=== PATIENT | male | born 1990 | race Caucasian/White ===

== ENCOUNTER 2016-10-18 15:12 | Emergency (ER) | payer BC ==
[2016-10-18] MEDS ORDERED: Lidocaine 2% VISCOUS* 15 ML UDC SWISH SPIT ONE (15:50)
--- NOTE | 2016-10-18 15:57 | UC ---
General HPI - HPI Summary HPI Summary: patient states he has a history of herpes and anxiety. he has had many sores in his mouth that has developed over the past few days, unable to eat hard to talk due to pain. no fever, he is to see mental health counselor on . - History of Current Complaint Chief Complaint: UCGeneralIllness Stated Complaint: SORE IN MOUTH Time Seen by Provider: 10/18/16 15:43 Hx Obtained From: Patient Onset/Duration: Sudden Onset, Lasting Days Onset Severity: Mild Current Severity: Severe Pain Intensity: 9 Pain Location at: mouth - Allergy/Home Medications Allergies/Adverse Reactions: Allergies Allergy/AdvReac Type Severity Reaction Status Date / Time Amoxicillin Allergy Severe Anaphylatic Verified 10/18/16 15:41 Shock Penicillins Allergy Intermediate Anaphylatic Verified 10/18/16 15:41 Shock PMH/Surg Hx/FS Hx/Imm Hx Previously Healthy: Yes Endocrine History Of: Denies: Diabetes, Thyroid Disease Cardiovascular History Of: Denies: Cardiac Disorders, Hypertension Respiratory History Of: Denies: COPD, Asthma GI/ History Of: Denies: Ulcer - Surgical History Surgical History: None - Family History Known Family History: Negative: Cardiac Disease, Hypertension - Social History Alcohol Use: None Substance Use Type: None Smoking Status (MU): Former Smoker Type: Cigarettes Amount Used/How Often: a few cig a day Household Exposure Type: Cigarettes Review of Systems Constitutional: Negative Skin: Negative Eyes: Negative ENT: Other - oral sores Respiratory: Negative Cardiovascular: Negative Gastrointestinal: Negative Genitourinary: Negative Motor: Negative Neurovascular: Negative Musculoskeletal: Negative Neurological: Negative Psychological: Anxious All Other Systems Reviewed And Are Negative: Yes Physical Exam Triage Information Reviewed: Yes Appearance: Well-Nourished, Ill-Appearing, Pain Distress Vital Signs: Initial Vital Signs Temp 98.5 F 10/18/16 15:38 Pulse 65 10/18/16 15:38 Resp 16 10/18/16 15:38 BP 130/59 10/18/16 15:38 Pulse Ox 99 10/18/16 15:38 Vital Signs Reviewed: Yes Eye Exam: Normal Eyes: Positive: Conjunctiva Clear ENT: Positive: Hearing grossly normal, Pharyngeal erythema, TMs normal Dental: Positive: Other: - multiple ulcerations throughout mouth and tongue, painful for patient to open mouth Neck: Positive: Supple, Nontender, No Lymphadenopathy Respiratory Exam: Normal Respiratory: Positive: Chest non-tender, Lungs clear, Normal breath sounds Cardiovascular Exam: Normal Cardiovascular: Positive: RRR, No Murmur, Pulses Normal Abdominal Exam: Normal Abdomen Description: Positive: Nontender, No Organomegaly, Soft Bowel Sounds: Positive: Present Musculoskeletal Exam: Normal Musculoskeletal: Positive: Strength Intact, ROM Intact, No Edema Neurological Exam: Normal Neurological: Positive: Alert, Muscle Tone Normal Psychological Exam: Normal Skin Exam: Normal Course/Dx - Course Course Of Treatment: history obtained, exam performed, visous lidocaine given for pain relief, patient did not tolerated, attempted to applie ice to the area without relief, ibprofen given as well. educated on oral hygiene and use of valtrex. valtrex given for possible herpes exacerbation, based on history. Patient is refusing all medicatons at this time. his anxiety is definitly high. Denies any thoughts of harming himself. turned down ativan and atarax becasue they make him sleepy. recommend giving the valtrex 24 hours to work, to use the ibuprofen. - Differential Dx - Multi-Symptom Provider Diagnoses: herpes outbreak. anxiety. ampthus ulcers Discharge - Discharge Plan Condition: Stable Disposition: HOME Prescriptions: ValACYclovir (*) [Valtrex 1 GM(*)] 1 gm PO TID #21 tab hydrOXYzine HCL TAB* [Atarax TAB*] 25 mg PO TID PRN #30 tab PRN Reason: Anxiety Patient Education Materials: Canker Sores (ED), Oral Herpes Simplex Virus Infections (ED) Additional Instructions: Take the valtrex as prescribed. I would continue with the ibuprofen. You refused the atarax, and other medication suggestion. If you do not get relief of symptoms follow up.
[2016-10-18] MEDS ORDERED: Al Hydrox/Mg Hydrox/Simet LIQ* 30 ML UDC PO ONE (16:20)
[2016-10-18] MEDS ORDERED: Ibuprofen TAB* 600 MG PO ONE (16:21)
[2016-10-18 16:43] VITALS: BP 130/59
== END 2016-10-18 16:48 | disposition home or self-care (01) ==
LOC: UCEAST 15:12
DX: B00.1 Herpesviral vesicular dermatitis (principal); K12.0 Recurrent oral aphthae; F41.9 Anxiety disorder, unspecified; Z88.0 Allergy status to penicillin; Z87.891 Personal history of nicotine dependence
CPT/HCPCS: 99212; A9270-GY; G0463

== ENCOUNTER 2016-12-09 15:00 | Emergency (ER) | payer BC, MEDICAID ==
[2016-12-09] MEDS ORDERED: NS 0.9% 1000 ML* 1,000 ML IV ONE ×2 (15:08→18:22)
[2016-12-09 15:22] LABS: Hematocrit 40 % (42-52); Hemoglobin 13.2 g/dl (14.0-18.0); Mean Corpuscular HGB Conc 33 g/dl (31-36); Mean Corpuscular Hemoglobin 30 pg (27-31); Mean Corpuscular Volume 89 fL (80-94); Mean Platelet Volume 8 um3 (7.4-10.4); Red Blood Count 4.45 10^6/ul (4.0-5.4); Red Cell Distribution Width 13 % (10.5-15); White Blood Count 9.1 10^3/ul (3.5-10.8)
--- NOTE | 2016-12-09 15:34 | RAD ---
Indication: Overdose. Single frontal view of the chest performed at 1517 hours was reviewed. Comparison is made with previous exam dated February 10, 2014. No mediastinal shift is noted. Heart is of normal size and configuration. Lung sy appear clear. IMPRESSION: NO ACTIVE CARDIOPULMONARY DISEASE IS NOTED.
[2016-12-09 15:38] LABS: ALT 28 U/L (7-52); AST 26 U/L (13-39); Alkaline Phosphatase 62 U/L (34-104); Anion Gap 7 mmol/L (2-11); BUN/Creatinine Ratio 13.2 (8-20); Blood Urea Nitrogen 15 mg/dL (6-24); CO2 Carbon Dioxide 26 mmol/L (22-32); Calcium 9.3 mg/dL (8.6-10.3); Chloride 102 mmol/L (101-111); Creatine Kinase 181 U/L (10-223); EGFR African American 99.9 (>60); EGFR Non-African American 77.6 (>60); Glucose 189 mg/dL (70-100); Potassium 3.1 mmol/L (3.5-5.0); Sodium 135 mmol/L (133-145)
[2016-12-09 15:58] LABS: Acetaminophen < 15 mcg/mL; Alcohol < 10 mg/dL (<10); Salicylate < 2.50 mg/dL (<30)
[2016-12-09 16:08] LABS: TSH (Thyroid Stimulating Horm) 3.19 mcIU/mL (0.34-5.60)
[2016-12-09] MEDS ORDERED: Potassium Chlor TAB* 20 MEQ TAB.ER PO ONE (16:26)
[2016-12-09] MEDS ORDERED: Naloxone* 0.4 MG/ML 1 ML VIAL IV PUSH ONE ×2 (16:33→17:49)
[2016-12-09] MEDS ORDERED: Ondansetron INJ* 2 MG/ML VIAL ONE (16:36)
[2016-12-09] MEDS ORDERED: Sulfamethox/Trimethoprim DS 800/160* TAB PO ONE (17:50)
[2016-12-09 20:23] VITALS: BP 112/60
--- NOTE | 2016-12-09 21:03 | ED ---
Laura Marks Matthew, scribed for Shelton Leon on 12/09/16 at 2014 . Progress - Progress Note Progress Note: The patient is A&Ox3. Urinalysis was reviewed. The patient's father is present with him and will take him home. I discussed with the father that he needed to watch the patient for the next 24 hours and check-up on him every 2 hours. The father and patient agreed with the plan. He is in stable condition and will be discharged home. Course/Dx - Diagnoses Provider Diagnoses: Drug overdose, Abscess The documentation as recorded by the Laura crook Matthew accurately reflects the service I personally performed and the decisions made by Edward garza Emmanuel.
--- NOTE | 2016-12-11 12:55 | PN ---
Progress Note - Progress Note Note: Patient preliminary wound culture grew Staph aureus which is MRSA positive. Patient placed on bactrim which is appropriate at this time.
--- NOTE | 2016-12-11 18:47 | ED ---
Vicente Marks Billy, scribed for Jose Vivas MD on 12/09/16 at 1518 . Substance Abuse/Use - HPI Summary HPI Summary: Patient is a 26 year-old male BIBA to [facility] after he was found unresponsive due to heroin OD. Police administered 2mg narcan IN and CPR for 1 minute on-scene. EMS administered 2mg narcan IN, 0.4mg narcan IM, and 0.4mg narcan IV with improvement. Patient is alert upon arrival to the ED. He admits to inhaling the heroin. His friend states that the patient also used methamphetamine and Xanax today. Patient admits to prior drug abuse as well. - History Of Current Complaint Chief Complaint: EDOverdose Stated Complaint: OVERDOSE Time Seen by Provider: 12/09/16 15:01 Hx Obtained From: Patient Onset/Duration of Drug/ETOH Abuse: Minutes Ingestion History: Type/Name Of Drug - heroin, methamphetamine, xanax Overdose Characteristics: Inhalation Timing Of Abuse: Binge Use Severity Initially: Severe Severity Currently: Moderate Character: Stuporous Aggravating Factor(s): Nothing Alleviating Factor(s): Medication - Allergies/Home Medications Allergies/Adverse Reactions: Allergies Allergy/AdvReac Type Severity Reaction Status Date / Time Amoxicillin Allergy Severe Anaphylatic Verified 10/18/16 15:41 Shock Penicillins Allergy Intermediate Anaphylatic Verified 10/18/16 15:41 Shock PMH/Surg Hx/FS Hx/Imm Hx Endocrine/Hematology History: Denies: Hx Diabetes, Hx Thyroid Disease Cardiovascular History: Denies: Hx Hypertension Respiratory History: Denies: Hx Asthma, Hx Chronic Obstructive Pulmonary Disease (COPD) GI History: Denies: Hx Ulcer Psychiatric History: Reports: Hx Substance Abuse - Immunization History Date of Tetanus Vaccine: within last 6 months per patient. Infectious Disease History: No Infectious Disease History: Reports: Hx Hepatitis - Hep C Denies: Hx Human Immunodeficiency Virus (HIV), Traveled Outside the [place] in Last 30 Days - Family History Known Family History: Negative: Cardiac Disease, Hypertension - Social History Alcohol Use: None Substance Use Type: Reports: None Smoking Status (MU): Heavy Every Day Tobacco Smoker Type: Cigarettes Amount Used/How Often: a few cig a day Review of Systems Negative: Fever Neurological: Other - heroin OD All Other Systems Reviewed And Are Negative: Yes Physical Exam - Summary Physical Exam Summary: The patient is well-nourished in no acute distress and in no acute pain. The skin is warm and dry and skin color reflects adequate perfusion. There is an abscess and cellulitis of the left inguinal area which appears to be secondary to an ingrown hair. HEENT: The head is normocephalic and atraumatic. The pupils are equal and reactive. The conjunctivae are clear and without drainage. Nares are patent and without drainage. Mouth reveals moist mucous membranes and the throat is without erythema and exudate. The external ears are intact. The ear canals are patent and without drainage. The tympanic membranes are intact. Neck is supple with full range of motion and non-tender. There are no carotid bruits. There is no neck vein distension. Respiratory: Chest is non-tender. Lungs are clear to auscultation and breath sounds are symmetrical and equal. Cardiovascular: Hear is regular rate and rhythm. There is no murmur or rub auscultated. There is no peripheral edema and pulses are symmetrical and equal. Abdomen: The abdomen is soft and non-tender. There are normal bowel sounds heard in all four quadrants and there is no organomegaly palpated. Musculoskeletal: There is no back pain noted. Extremities are non-tender with full range of motion. There is good capillary refill. There is no peripheral edema or calf tenderness elicited. Neurological: Patient is alert and oriented to person, place and time. The patient has symmetrical motor strength in all four extremities. Cranial nerves are grossly intact. Deep tendon reflexes are symmetrical and equal in all four extremities. Psychiatric: The patient has an appropriate affect and does not exhibit any anxiety or depression. Triage Information Reviewed: Yes Vital Signs On Initial Exam: Initial Vitals Pulse Resp Pulse Ox 96 18 100 12/09/16 15:07 12/09/16 15:07 12/09/16 15:07 Vital Signs Reviewed: Yes Procedures - Procedure Summary Procedure Summary: Procedure - Incision and Drainage Patient positioned appropriately, 5cc lidocaine with/without epinephrine was used as a local anesthetic. #11 blade scalpel used for single incision. Additional local anesthetic injected into surrounding viable tissue prior to blunt dissection of loculated adhesions. Copious drainage of pus was expressed ( culture obtained). Patient refused Wound packed with iodoform gauze. Procedure tolerated without complications. Wound dressed with sterile 4x4 gauze and paper tape. Diagnostics - Vital Signs Vital Signs Temp Pulse Resp BP Pulse Ox 12/09/16 15:09 97.3 F 97 16 142/95 100 12/09/16 15:07 96 18 100 - Laboratory Lab Results: Lab Results 12/09/16 12/09/16 12/09/16 Range/Units 15:15 15:15 15:15 WBC 9.1 (3.5-10.8) 10^3/ul RBC 4.45 (4.0-5.4) 10^6/ul Hgb 13.2 L (14.0-18.0) g/dl Hct 40 L (42-52) % MCV 89 (80-94) fL MCH 30 (27-31) pg MCHC 33 (31-36) g/dl RDW 13 (10.5-15) % Plt Count 211 (150-450) 10^3/ul MPV 8 (7.4-10.4) um3 Neut % (Auto) 62.9 (38-83) % Lymph % (Auto) 27.1 (25-47) % [place] % (Auto) 7.0 (1-9) % Eos % (Auto) 1.9 (0-6) % Baso % (Auto) 1.1 (0-2) % Absolute Neuts (auto) 5.7 (1.5-7.7) 10^3/ul Absolute Lymphs (auto) 2.5 (1.0-4.8) 10^3/ul Absolute Monos (auto) 0.6 (0-0.8) 10^3/ul Absolute Eos (auto) 0.2 (0-0.6) 10^3/ul Absolute Basos (auto) 0.1 (0-0.2) 10^3/ul Absolute Nucleated RBC 0.01 10^3/ul Nucleated RBC % 0.1 Sodium 135 (133-145) mmol/L Potassium 3.1 L (3.5-5.0) mmol/L Chloride 102 (101-111) mmol/L Carbon Dioxide 26 (22-32) mmol/L Anion Gap 7 (2-11) mmol/L BUN 15 (6-24) mg/dL Creatinine 1.14 (0.67-1.17) mg/dL Est GFR ( Amer) 99.9 (>60) Est GFR (Non-Af Amer) 77.6 (>60) BUN/Creatinine Ratio 13.2 (8-20) Glucose 189 H (70-100) mg/dL Lactic Acid 2.6 H* (0.5-2.0) mmol/L Calcium 9.3 (8.6-10.3) mg/dL Total Bilirubin 0.50 (0.2-1.0) mg/dL AST 26 (13-39) U/L ALT 28 (7-52) U/L Alkaline Phosphatase 62 (34-104) U/L Total Creatine Kinase 181 (10-223) U/L Total Protein 7.0 (6.4-8.9) g/dL Albumin 4.0 (3.2-5.2) g/dL Globulin 3.0 (2-4) g/dL Albumin/Globulin Ratio 1.3 (1-3) TSH 3.19 (0.34-5.60) mcIU/mL Salicylates < 2.50 (<30) mg/dL Acetaminophen < 15 mcg/mL Serum Alcohol < 10 (<10) mg/dL Result Diagrams: 12/09/16 15:15 12/09/16 15:15 Lab Statement: Any lab studies that have been ordered have been reviewed, and results considered in the medical decision making process. - Radiology CXR Xray Interpretation: No Acute Changes Radiology Interpretation Completed By: Radiologist - EKG 1826 EKG Interpretation: sinus tachycardia 104 bpm, no ST elevation EKG Comparison: No Significant Change - Compared to 02/10/14 Course/Dx - Course Assessment/Plan: Patient is a 26 year-old male BIBA to [facility] after he was found unresponsive due to heroin OD. Police administered 2mg narcan IN and CPR for 1 minute on-scene. EMS administered 2mg narcan IN, 0.4mg narcan IM, and 0.4mg narcan IV with improvement. Patient is alert upon arrival to the ED. He admits to inhaling the heroin. His friend states that the patient also used methamphetamine and Xanax today. Patient admits to prior drug abuse as well. Bloodwork shows mild anemia, hypokalemia of 3.1 for which he was given potassium chloride, glucose 189 and lactic acid 2.6. CXR shows no acute pathology. EKG shows sinus tachycardia without ST elevation. In addition to the narcan given to him by law enforcement and EMS, we have given the patient 2x doses of narcan here in the ED and he is A&Ox3. He was hydrated with IVF but he was unable to provide urine sample yet. He was also noted to have an abscess and cellulitis in the left inguinal area from an ingrown hair. I performed I&D for the abscess. See procedure note for further details. The patient was given Keflex for the infection. We are still waiting on urine toxicology and UA. The patient is hemodynamically stable, A&Ox3. After UA results, the patient can be discharged home to follow up with PCP. The patient will be signed out to Dr. Leon pending UA. - Diagnoses Provider Diagnoses: Drug overdose, Abscess Discharge - Discharge Plan Condition: Stable Disposition: HOME Discharge Disposition Comment: Signed out to Dr. Leon pending UA. Prescriptions: Ibuprofen TAB* [Motrin TAB* 600 MG] 600 mg PO Q8H PRN #20 tab PRN Reason: Pain Sulfamethox/Trimethoprim DS* [Bactrim DS 800/160 TAB*] 1 tab PO BID #20 tab Patient Education Materials: Sulfamethoxazole/Trimethoprim (By mouth), Ibuprofen (By mouth), Abscess (ED), Adult Overdose (ED) Referrals: [facility] REFERRAL [Outside] Additional Instructions: Please follow-up with your primary care physician in 3 days. The documentation as recorded by the Vicente crook Billy accurately reflects the service I personally performed and the decisions made by me, Jose Vivas MD.
--- NOTE | 2016-12-12 08:30 | PN ---
Progress Note - Progress Note Note: Cultures are sensitive to Bactrim. No further action needed.
== END 2016-12-09 20:53 | disposition home or self-care (01) ==
LOC: ED 15:00
DX: T40.1X4A Poisoning by heroin, undetermined, initial encounter (principal); Y92.9 Unspecified place or not applicable
CPT/HCPCS: 36415; 71010; 80053; 80320; 80329; 82550; 83605; 84443; 85025; 87070; 87077; 87186; 87205; 87640; 87641; 93005; 96374; 96375; 96376; 99284; A9270-GY; G0480; J2310; J2405

== ENCOUNTER 2016-12-15 21:56 | Emergency (ER) | payer MEDICAID ==
[2016-12-15 22:36] LABS: Hematocrit 45 % (42-52); Hemoglobin 15.1 g/dl (14.0-18.0); Mean Corpuscular HGB Conc 34 g/dl (31-36); Mean Corpuscular Hemoglobin 30 pg (27-31); Mean Corpuscular Volume 89 fL (80-94); Mean Platelet Volume 8 um3 (7.4-10.4); Red Blood Count 5.03 10^6/ul (4.0-5.4); Red Cell Distribution Width 14 % (10.5-15)
[2016-12-15 22:52] LABS: Troponin I 0.01 ng/mL (<0.04)
[2016-12-15 22:54] LABS: Albumin 4.4 g/dL (3.2-5.2); Calcium 9.9 mg/dL (8.6-10.3); EGFR African American 81.5 (>60); EGFR Non-African American 63.3 (>60); Globulin 3.5 g/dL (2-4); Total Bilirubin 0.5 mg/dL (0.2-1.0); Total Protein 7.9 g/dL (6.4-8.9)
[2016-12-16 06:05] VITALS: BP 102/66
--- NOTE | 2016-12-16 06:21 | ED ---
Selina, DoctorEva, scribed for Glenis Park MD on 12/16/16 at 0100 . Substance Abuse/Use - HPI Summary HPI Summary: 26 year old male brought to [facility] by EMS after heroin overdose. Patient non- responsive, was unable to provide any information regarding OD episode. HPI limited due to level 5 caveat. - History Of Current Complaint Chief Complaint: EDOverdose Stated Complaint: OVERDOSE Time Seen by Provider: 12/15/16 22:08 Hx Obtained From: EMS Hx From Patient Unobtainable Due To: Other - Level 5 Caveat Onset/Duration of Drug/ETOH Abuse: Hours Ingestion History: Type/Name Of Drug - Heroin - Allergies/Home Medications Allergies/Adverse Reactions: Allergies Allergy/AdvReac Type Severity Reaction Status Date / Time Amoxicillin Allergy Severe Anaphylatic Verified 10/18/16 15:41 Shock Penicillins Allergy Intermediate Anaphylatic Verified 10/18/16 15:41 Shock PMH/Surg Hx/FS Hx/Imm Hx Endocrine/Hematology History: Denies: Hx Diabetes, Hx Thyroid Disease Cardiovascular History: Denies: Hx Hypertension Respiratory History: Denies: Hx Asthma, Hx Chronic Obstructive Pulmonary Disease (COPD) GI History: Denies: Hx Ulcer Psychiatric History: Reports: Hx Substance Abuse - Immunization History Date of Tetanus Vaccine: within last 6 months per patient. Infectious Disease History: Unable to Obtain/Confirm Infectious Disease History: Reports: Hx Hepatitis - Hep C Denies: Hx Human Immunodeficiency Virus (HIV), Traveled Outside the US in Last 30 Days - Family History Known Family History: Negative: Cardiac Disease, Hypertension - Social History Alcohol Use: None Substance Use Type: Reports: Heroin Substance Use Comment - Amount & Last Used: unknown Smoking Status (MU): Heavy Every Day Tobacco Smoker Type: Cigarettes Amount Used/How Often: a few cig a day Review of Systems - ROS Summary Review of Systems Summary: ROS limited due to Level 5 Caveat Negative: Fever All Other Systems Reviewed And Are Negative: No Physical Exam - Summary Physical Exam Summary: PE limited due to Level 5 Caveat Triage Information Reviewed: Yes Vital Signs On Initial Exam: Initial Vitals Temp Pulse Resp BP Pulse Ox 96.4 F 62 14 119/69 97 12/15/16 22:04 12/15/16 22:04 12/15/16 22:04 12/15/16 22:04 12/15/16 22:04 Vital Signs Reviewed: Yes - [place] Coma Scale Coma Scale Total: 9 Diagnostics - Vital Signs Vital Signs Temp Pulse Resp BP Pulse Ox 12/15/16 22:10 96.4 F 62 14 119/69 97 12/15/16 22:04 96.4 F 62 14 119/69 97 - Laboratory Lab Results: Lab Results 12/15/16 12/15/16 Range/Units 22:25 22:25 WBC 8.0 (3.5-10.8) 10^3/ul RBC 5.03 (4.0-5.4) 10^6/ul Hgb 15.1 (14.0-18.0) g/dl Hct 45 (42-52) % MCV 89 (80-94) fL MCH 30 (27-31) pg MCHC 34 (31-36) g/dl RDW 14 (10.5-15) % Plt Count 253 (150-450) 10^3/ul MPV 8 (7.4-10.4) um3 Neut % (Auto) 63.6 (38-83) % Lymph % (Auto) 27.7 (25-47) % [place] % (Auto) 7.5 (1-9) % Eos % (Auto) 0.5 (0-6) % Baso % (Auto) 0.7 (0-2) % Absolute Neuts (auto) 5.1 (1.5-7.7) 10^3/ul Absolute Lymphs (auto) 2.2 (1.0-4.8) 10^3/ul Absolute Monos (auto) 0.6 (0-0.8) 10^3/ul Absolute Eos (auto) 0 (0-0.6) 10^3/ul Absolute Basos (auto) 0.1 (0-0.2) 10^3/ul Absolute Nucleated RBC 0.01 10^3/ul Nucleated RBC % 0.2 Sodium 136 (133-145) mmol/L Potassium 4.0 (3.5-5.0) mmol/L Chloride 101 (101-111) mmol/L Carbon Dioxide 28 (22-32) mmol/L Anion Gap 7 (2-11) mmol/L BUN 19 (6-24) mg/dL Creatinine 1.36 H (0.67-1.17) mg/dL Est GFR ( Amer) 81.5 (>60) Est GFR (Non-Af Amer) 63.3 (>60) BUN/Creatinine Ratio 14.0 (8-20) Glucose 128 H (70-100) mg/dL Calcium 9.9 (8.6-10.3) mg/dL Total Bilirubin 0.50 (0.2-1.0) mg/dL AST 27 (13-39) U/L ALT 28 (7-52) U/L Alkaline Phosphatase 68 (34-104) U/L Troponin I 0.01 (<0.04) ng/mL Total Protein 7.9 (6.4-8.9) g/dL Albumin 4.4 (3.2-5.2) g/dL Globulin 3.5 (2-4) g/dL Albumin/Globulin Ratio 1.3 (1-3) Result Diagrams: 12/15/16 22:25 12/15/16 22:25 Lab Statement: Any lab studies that have been ordered have been reviewed, and results considered in the medical decision making process. - EKG 22:16 Cardiac Rate: NL - 86 BPM EKG Rhythm: Sinus Rhythm - normal EKG Interpretation: T slightly peaked from normal EKG Comparison: No Significant Change - from 12/09/2016 Course/Dx - Course Course Of Treatment: 26 yo male with heroine od in the field requiring 6mg intranasal narcane in total observed here in the ED for multiple hours now awake and ok to go to long-term - Diagnoses Provider Diagnoses: Heroin overdose - Physician Notifications Discussed Care Of Patient With: 23:00 - discussed care of pt with Dr. Grullon ( hospitalist). Agrees to admit him. Discharge - Discharge Plan Condition: Stable Disposition: HOME Patient Education Materials: Narcotic Abuse (ED) Referrals: No Primary Care Phys,NOPCP [Primary Care Provider] - The documentation as recorded by the Doctor crook Tahera accurately reflects the service I personally performed and the decisions made by me, Glenis Park MD.
== END 2016-12-16 06:26 | disposition home or self-care (01) ==
LOC: ED 21:56
DX: T40.1X1A Poisoning by heroin, accidental (unintentional), initial encounter (principal); Y92.9 Unspecified place or not applicable
CPT/HCPCS: 36415; 80053; 84484; 85025; 93005; 99284

== ENCOUNTER 2017-05-04 19:43 | Emergency (ER) | payer MEDICAID ==
[2017-05-04 19:53] VITALS: BP 126/68
[2017-05-04] MEDS ORDERED: DOXYcycline CAP(*) 100 MG PO ONE (20:42)
[2017-05-04] MEDS ORDERED: Acetaminophen TAB* 325 MG PO ONE (20:42)
--- NOTE | 2017-05-04 20:54 | UC ---
Skin Complaint HPI - HPI Summary HPI Summary: Pt noticed multiple pimples/pustules on face starting yesterday, does not usually have acne on face to this degree. Tried popping 3 of the spots yesterday , and today they are much bigger and more painful. Two have a white head on them and the third is hard and painful. Denies fever or known exposure to infection; [place] [place] to [place]. - History of Current Complaint Hx Obtained From: Patient Onset/Duration: Gradual Onset, Lasting Days Timing: Constant Onset Severity: Mild Current Severity: Moderate Location: Discrete Character: Redness, Raised, Painful Aggravating: Touch Alleviating: Nothing Associated Signs & Symptoms: Positive: Tenderness <Kelly Lopez - Last Filed: 05/04/17 20:47> <Meghan David - Last Filed: 05/04/17 22:14> - History of Current Complaint Chief Complaint: UCSkin Time Seen by Provider: 05/04/17 20:37 Stated Complaint: SORES ON FACE - Allergy/Home Medications Allergies/Adverse Reactions: Allergies Allergy/AdvReac Type Severity Reaction Status Date / Time Amoxicillin Allergy Severe Anaphylatic Verified 05/04/17 19:53 Shock Penicillins Allergy Intermediate Anaphylatic Verified 05/04/17 19:53 Shock Review of Systems Constitutional: Negative Skin: Other - swollen painful spots on face Eyes: Negative ENT: Negative Respiratory: Negative Cardiovascular: Negative Gastrointestinal: Negative Genitourinary: Negative Motor: Negative Neurovascular: Negative Musculoskeletal: Negative Neurological: Negative Psychological: Negative All Other Systems Reviewed And Are Negative: Yes <Kelly Lopez - Last Filed: 05/04/17 20:47> PMH/Surg Hx/FS Hx/Imm Hx Previously Healthy: Yes - Surgical History Surgical History: None - Family History Known Family History: Negative: Cardiac Disease, Hypertension - Social History Alcohol Use: None Substance Use Type: Heroin Substance Use Comment - Amount & Last Used: last used 2011 Smoking Status (MU): Heavy Every Day Tobacco Smoker Type: Cigarettes Amount Used/How Often: a few cig a day Household Exposure Type: Cigarettes <Kelly Lopez - Last Filed: 05/04/17 20:47> Physical Exam Triage Information Reviewed: Yes Appearance: Well-Appearing, Pain Distress - mild Vital Signs: Initial Vital Signs Temp 99.0 F 05/04/17 19:49 Pulse 66 05/04/17 19:49 Resp 18 05/04/17 19:49 BP 126/68 05/04/17 19:49 Pulse Ox 99 05/04/17 19:49 Vital Signs Reviewed: Yes Eye Exam: Normal, Other - PERRL Eyes: Positive: Conjunctiva Clear ENT Exam: Normal ENT: Positive: Hearing grossly normal, Pharynx normal, TMs normal. Negative: Tonsillar swelling, Tonsillar exudate Dental Exam: Normal Neck exam: Normal Neck: Positive: Supple, Nontender, No Lymphadenopathy Respiratory Exam: Normal Respiratory: Positive: Chest non-tender, Lungs clear, Normal breath sounds, No respiratory distress, No accessory muscle use Cardiovascular Exam: Normal Cardiovascular: Positive: RRR, No Murmur Musculoskeletal Exam: Normal Neurological Exam: Normal Neurological: Positive: Alert Psychological Exam: Normal Skin Exam: Other - R jawline 2cm deep painful nodule with overlying erythema, 2 pustules with a crust and swelling in the skin near R side of mouth. Multiple small pustules and red spots on forehead and chin <Kelly Lopez - Last Filed: 05/04/17 20:47> Vital Signs: Initial Vital Signs Temp 99.0 F 05/04/17 19:49 Pulse 66 05/04/17 19:49 Resp 18 05/04/17 19:49 BP 126/68 05/04/17 19:49 Pulse Ox 99 05/04/17 19:49 <Meghan David - Last Filed: 05/04/17 22:14> Course/Dx - Diagnoses Provider Diagnoses: carbunculosis. folliculosis. elevated blood pressure due to discomfort <Kelly Lopez - Last Filed: 05/04/17 20:47> Discharge <Kelly Lopez - Last Filed: 05/04/17 20:47> <Meghan David - Last Filed: 05/04/17 22:14> - Discharge Plan Condition: Stable Disposition: HOME Prescriptions: DOXYcycline CAP(*) [DOXYcycline 100MG CAP(*)] 100 mg PO BID #14 cap Naproxen TAB* [Naprosyn 250 mg TAB*] 250 mg PO Q8H PRN #15 tab PRN Reason: Pain Patient Education Materials: Furunculosis and Carbunculosis (ED) Referrals: No Primary Care Phys,NOPCP [Primary Care Provider] - Additional Instructions: Apply warm compresses and do NOT squeeze or pick at the area. If any of the spots become very large or tender, please come back. Attestation Statement User Type: Provider - I was available for consult. This patient was seen by the SU. The patient was not presented to, seen by, or examined by me. -Shelia <Meghan David - Last Filed: 05/04/17 22:14>
== END 2017-05-04 21:05 | disposition home or self-care (01) ==
LOC: UCEAST 19:43
DX: L02.03 Carbuncle of face (principal); L73.9 Follicular disorder, unspecified; R03.0 Elevated blood-pressure reading, without diagnosis of hypertension; F17.210 Nicotine dependence, cigarettes, uncomplicated; Z88.0 Allergy status to penicillin
CPT/HCPCS: 99212; A9270-GY; G0463